=== PATIENT | female | born 1960 | race African-American/Black ===

== ENCOUNTER 2020-08-15 11:37 | Emergency (ER) | payer BC, OTHER ==
[2020-08-15] MEDS ORDERED: Ketorolac 60 MG/2 ML SDV IM ONE (11:59)
[2020-08-15] MEDS ORDERED: Orphenadrine 100 MG Tab.ER PO ONE (11:59)
--- NOTE | 2020-08-15 12:03 | EDM.PDOC ---
ED HPI GENERAL MEDICAL PROBLEM - General Chief Complaint: Neck Problem Stated Complaint: NECK PAIN Time Seen by Provider: 08/15/20 11:47 Source of Information: Reports: Patient, RN Notes Reviewed History Limitations: Reports: No Limitations - History of Present Illness INITIAL COMMENTS - FREE TEXT/NARRATIVE: Patient is a 60-year-old female who presents to the ER for an ongoing neck complaint. Patient notes last week Sunday, she woke up with somewhat of a stiff neck, but that over the week is just been getting worse. She is not had any recent trauma/falls/injuries to the area. She states that both sides of her neck are very stiff and it hurts all the way down into her mid shoulders. She notes that she is unable to turn her head to side suicide, and not it up and down due to the pain. She is not having any numbness or tingling to her extremities. She has been using 400 mg ibuprofen in the morning and at nighttime. She did not take this this morning however. She further denies any fever/chills, cough/shortness of breath, nausea/vomiting/diarrhea. Neck Pain Score (Numeric/FACES): 10 - Related Data Allergies Allergy/AdvReac Type Severity Reaction Status Date / Time No Known Allergies Allergy Verified 08/15/20 11:50 Home Meds: Home Meds Ascorbic Acid [Vitamin C] 1,000 mg PO DAILY 08/15/20 [History] Cholecalciferol (Vitamin D3) [Vitamin D] 5,000 unit PO DAILY 08/15/20 [History] Naproxen [Naprosyn] 500 mg PO Q12HR #14 tab 08/15/20 [Rx] Orphenadrine [Norflex] 100 mg PO BID PRN #20 tab 08/15/20 [Rx] Zinc 50 mg PO DAILY 08/15/20 [History] Past Medical History Respiratory History: Reports: Asthma - Past Surgical History GI Surgical History: Reports: Other (See Below) Other GI Surgeries/Procedures: umbilical hernia Female Surgical History: Reports: Section Social & Family History - Tobacco Use Tobacco Use Status *Q: Never Tobacco User Second Hand Smoke Exposure: No - Recreational Drug Use Recreational Drug Use: No ED ROS GENERAL - Review of Systems Review Of Systems: Comprehensive ROS is negative, except as noted in HPI. ED EXAM, UPPER BACK/NECK PAIN - Physical Exam Exam: See Below Exam Limited By: No Limitations General Appearance: Alert, WD/WN, No Apparent Distress Head Exam: Atraumatic, Normocephalic Neck Exam: Normal Alignment, Normal Inspection, Muscle Spasm (pt has diffuse bilateral neck stiffness; she presents with a soft neck collar to help prevent her from turning head side to side.), Paraspinous Muscle Tender, Stiff Neck. No: Spinous Processes Tender Nexus Criteria: No: Posterior, Midline Cervical Tenderness, Evidence of Intoxication, Altered Level of Consciousness, Focal Neurological Deficit, Painful Distraction Injuries Cardiovascular/Respiratory: Regular Rate, Rhythm, No M/R/G, Normal Peripheral Pulses, No JVD, Normal Breath Sounds, No Respiratory Distress Extremities: Normal Inspection, Normal Range of Motion, Normal Capillary Refill Neurologic: No Motor/Sensory Deficits, Alert, Normal Mood/Affect, Oriented x 3 Psychiatric: Normal Affect, Normal Mood Skin Exam: Normal Color, Warm/Dry Course - Vital Signs Last Recorded V/S: Last Vital Signs Temp 97.6 F 08/15/20 11:48 Pulse 86 08/15/20 11:48 Resp 16 08/15/20 11:48 BP 154/96 H 08/15/20 11:48 Pulse Ox 98 08/15/20 11:48 - Orders/Labs/Meds Meds: Medications Discontinued Medications Generic Name Dose Route Start Last Admin Trade Name Joe PRDonato Reason Stop Dose Admin Ketorolac Tromethamine 60 mg 08/15/20 11:59 08/15/20 12:05 Ketorolac 60 Mg/2 Ml Sdv IM 08/15/20 12:00 60 mg ONETIME ONE Administration Orphenadrine Citrate 100 mg 08/15/20 11:59 08/15/20 12:05 Orphenadrine 100 Mg Tab.Er PO 08/15/20 12:00 100 mg ONETIME ONE Administration - Re-Assessments/Exams Free Text/Narrative Re-Assessment/Exam: 08/15/20 12:03 Patient presents to the ED for her neck stiffness/pain. We will go ahead and try 60 mg IM Toradol and 100 mg p.o. Norflex for initial management. Patient has a pretty severe case of torticollis at this time. This will likely take some time to get better. 08/15/20 12:47 Patient was reassessed at bedside, and states that it is a little easier to move her neck at this time, she would like to go home and rest. We have provided with a prescription for Naprosyn and Norflex and conservative measures. Patient verbalized understanding. Departure - Departure Time of Disposition: 12:47 Disposition: Home, Self-Care 01 Condition: Good Clinical Impression: Acute torticollis - Discharge Information *PRESCRIPTION DRUG MONITORING PROGRAM REVIEWED*: No *COPY OF PRESCRIPTION DRUG MONITORING REPORT IN PATIENT LIVE: No Prescriptions: Naproxen [Naprosyn] 500 mg PO Q12HR #14 tab Orphenadrine [Norflex] 100 mg PO BID PRN #20 tab PRN Reason: Spasms Instructions: Acute Torticollis, Adult Referrals: Monisha Mendez MD [Primary Care Provider] - Forms: ED Department Discharge Additional Instructions: You have been evaluated in the ED for your neck pain/stiffness. You have been clinically diagnosed with torticollis which is a severe neck stiffness. You were given a dose of oral muscle relaxers in the ER, along with an IM injection of Toradol, this seemed to help relieve some of your symptoms and you were able to move your neck a little more. Please use ice/heat as tolerated to the affected area. Please try to elevate the affected area to relieve swelling. You were given a prescription of Naprosyn, this is an extra strength Aleve, you will need to take 1 tablet 2 times a day. You were also given a prescription for Norflex, the muscle relaxer you received in the ER today. Dosing will be 1 tablet 2 times a day as well. Please do not drive while taking this medication as it can be quite sedating. Your prescription was electronically sent to [facility] pharmacy located near [facility], this pharmacy is only open from 12 to 4 PM on Sundays, you will need to go there during this timeframe to obtain this medication and take as prescribed. Please return to ED if your symptoms should change or worsen. Sepsis Event Note (ED) - Evaluation Sepsis Screening Result: No Definite Risk - Focused Exam Vital Signs: Vital Signs Temp Pulse Resp BP Pulse Ox 08/15/20 11:48 97.6 F 86 16 154/96 H 98
[2020-08-19] MEDS ORDERED: Bupivacaine 0.5% 30 ML SDV ONE (21:08)
== END 2020-08-15 13:00 | disposition home or self-care (01) ==
LOC: JD.ED 11:37
DX: M43.6 Torticollis (principal); J45.909 Unspecified asthma, uncomplicated
CPT/HCPCS: 96372; 99283; A9270; J1885